=== PATIENT | male | born 1980 | race Caucasian/White ===

== ENCOUNTER → 2017-04-30 | Outpatient (CLI) | payer BC ==
--- NOTE | 2017-04-30 15:59 | KCIC ---
Indication: Right knee pain. Time of exam 3:39 PM 3 views of the right knee demonstrate significant soft tissue swelling in the prepatellar tissues. Alignment is normal. The joint spaces are well-maintained. The articular surfaces are smooth. No fracture, dislocation or effusion is detected. IMPRESSION: Significant prepatellar soft tissue swelling. No acute bony abnormality is detected. Electronically signed by: Geovanni Franz MD (04/30/2017 3:56 PM) [id number]
== END | disposition home or self-care (01) ==
LOC: KCIC 15:29
PROVIDERS: ATTEND Family Medicine
DX: M25.561 Pain in right knee (principal); M25.461 Effusion, right knee
CPT/HCPCS: 73562